=== PATIENT | female | born 1950 | race Caucasian/White ===

== ENCOUNTER 2021-05-01 10:15 | Outpatient (CLI) | payer MEDICARE ==
[2021-05-01 11:49] LABS: Hemoglobin 13.5 g/dL (12.0-15.5); Mean Corpuscular HGB CONC 32.5 g/dL (32.0-36.0); Mean Corpuscular Hemoglobin 31.2 pg (27.0-33.0); Mean Corpuscular Volume 96.1 fl (81.6-98.3); Mean Platelet Volume 9.9 fl (7.4-10.4); Platelet Count 337 10x3/uL (150-450); RBC Distribution Width 13.8 % (11.5-14.5); Red Blood Cell (RBC) Count 4.33 10x6/uL (3.90-5.03); White Blood Cell (WBC) Count 6.1 10x3/uL (3.5-10.5)
[2021-05-01 11:53] LABS: Prothrombin Time 11.3 sec (9.5-12.1)
[2021-05-01 11:55] LABS: Anion Gap 10 mmol/L (10-20); BUN (Urea Nitrogen) 11 mg/dL (9.8-20.1); Calc. Creatinine Clearance 0 mL/min (70-130); Calcium 9.2 mg/dL (7.8-10.44); Carbon Dioxide 30 mmol/L (23-31); Chloride 101 mmol/L (98-107); Glucose 85 mg/dL (80-115); Potassium 5.2 mmol/L (3.5-5.1); Sodium 136 mmol/L (136-145)
[2021-05-01 18:27] LABS: SARS-CoV-2 PCR by NAA Not Detected (NotDetected)
== END 2021-05-01 10:16 | disposition home or self-care (01) ==
LOC: LABBT 10:15
PROVIDERS: ATTEND Internal Medicine Cardiovascular Disease
DX: Z01.812 Encounter for preprocedural laboratory examination (principal); I48.0 Paroxysmal atrial fibrillation; Z20.822 Contact with and (suspected) exposure to COVID-19
CPT/HCPCS: 80048; 85027; 85610; U0003; U0005

== ENCOUNTER 2021-05-06 06:07 | Day surgery (SDC) | payer MEDICARE, OTHER ==
[2021-04-28 11:04] VITALS: BMI 22.0
[2021-05-06] MEDS ORDERED: Heparin 10,000 UNITS/ 10 ML VIAL ONE ×2 (06:39→09:58)
[2021-05-06] MEDS ORDERED: Heparin 25,000 units/D5W 500 ML ONE (06:39)
[2021-05-06] MEDS ORDERED: Fentanyl 100 MCG/2 ML VIAL ONE ×2 (06:56→10:34)
[2021-05-06] MEDS ORDERED: Midazolam HCl 2 mg/2 ml Vial ONE (07:24)
[2021-05-06] MEDS ORDERED: PROPOFOL 200 MG/20 ML VIAL ONE (07:27)
[2021-05-06] MEDS ORDERED: Lidocaine 1% PF 5 ML VIAL ONE (07:27)
[2021-05-06] MEDS ORDERED: Glycopyrrolate 0.2 MG/ML 5 ML SYRINGE ONE (07:27)
[2021-05-06] MEDS ORDERED: Rocuronium Bromide 10 MG/ML (10ML VIAL) ONE (07:27)
[2021-05-06] MEDS ORDERED: Calcium Chloride 1 GM/10 ML Abboject SYRINGE ONE (07:27)
[2021-05-06] MEDS ORDERED: PHENYLEPHRINE-NS 100 MCG/ML 10 ML SYRINGE ONE (07:27)
[2021-05-06] MEDS ORDERED: Protamine Sulfate 50 MG/5 ML VIAL ONE (09:22)
[2021-05-06] MEDS ORDERED: Isoproterenol 0.2 MG/1 ML AMP ONE (10:00)
[2021-05-06] MEDS ORDERED: Acetaminophen 325 MG TAB ONE (11:08)
== END 2021-05-06 14:30 | disposition home or self-care (01) ==
LOC: CCL 06:07
PROVIDERS: ATTEND Internal Medicine Cardiovascular Disease
PROC: B246ZZ4 Ultrasonography of Right and Left Heart, Transesophageal (ICD-10-PCS; principal; 2021-05-06)
PROC: 02583ZZ Destruction of Conduction Mechanism, Percutaneous Approach (ICD-10-PCS; 2021-05-06)
PROC: 02K83ZZ Map Conduction Mechanism, Percutaneous Approach (ICD-10-PCS; 2021-05-06)
DX: I48.0 Paroxysmal atrial fibrillation (principal); I47.1 Supraventricular tachycardia; I11.9 Hypertensive heart disease without heart failure; I34.1 Nonrheumatic mitral (valve) prolapse; I49.3 Ventricular premature depolarization; E78.5 Hyperlipidemia, unspecified; E03.9 Hypothyroidism, unspecified; Z87.891 Personal history of nicotine dependence; Z79.01 Long term (current) use of anticoagulants; Z79.83 Long term (current) use of bisphosphonates; Z79.899 Other long term (current) drug therapy
CPT/HCPCS: 85347; 93005; 93312; 93613; 93623; 93656; 93657; 93662; C1732; C1759; C1776; C1894; C2630; J1644; J2250; J2704; J2720; J3010

== ENCOUNTER 2023-01-15 23:46 | Observation (INO) | payer MEDICARE, OTHER ==
[2023-01-16] MEDS ORDERED: Morphine 4 MG/ML VIAL ONE (00:36)
[2023-01-16 00:51] LABS: Bacteria/HPF None Seen HPF (None Seen); Bilirubin Negative (Negative); Blood, Urine Negative (Negative); CAUTI Indications for Culture Dysuria,urgency,freq; Clarity Clear (Clear); Glucose, Urine (Dipstick) Normal (Negative); Ketone, Urine 10 mg/dL (Negative); Leukocyte Negative Leu/uL (Negative); Nitrite 1+ (Negative); Protein, Urine (Dipstick) Negative (Neg-Trace); RBC/HPF 0-3 HPF (0-3); Specific Gravity, Urine 1.005 (1.002-1.036); Squamous Epithelial None Seen HPF (0-3); Urobilinogen Normal mg/dL (Less than 2); WBC/HPF 0-3 HPF (0-3); pH, Urine 6.5 (5.0-9.0)
[2023-01-16 00:52] LABS: ALT (SGPT) 14 U/L (8-55); AST (SGOT) 20 U/L (5-34); Albumin 4.2 g/dL (3.4-4.8); Alkaline Phosphatase 177 U/L (40-110); Anion Gap 15 mmol/L (10-20); BUN (Urea Nitrogen) 15 mg/dL (9.8-20.1); Bilirubin, Total 0.6 mg/dL (0.2-1.2); Calc. Creatinine Clearance 0 mL/min (70-130); Calcium 9.6 mg/dL (7.8-10.44); Carbon Dioxide 21 mmol/L (23-31); Chloride 96 mmol/L (98-107); Estimated GFR 93; Globulin 2.7 g/dL (2.4-3.5); Glucose 97 mg/dL (80-115); Potassium 3.3 mmol/L (3.5-5.1); Protein, Total 6.9 g/dL (5.8-8.1); Sodium 129 mmol/L (136-145)
[2023-01-16 00:59] LABS: Urine Culture Reflex No No
[2023-01-16] MEDS ORDERED: cefTRIAXone (ROCEPHIN) 500 MG VIAL ONE (01:17)
[2023-01-16] MEDS ORDERED: cefTRIAXone (ROCEPHIN) 1 GM VIAL ONE (01:19)
[2023-01-16 01:54] LABS: #Basophils 0.1 thou/uL (0.0-0.2); #Eosinphils 0.2 thou/uL (0.0-0.7); #Monocytes 1.2 thou/uL (0.11-0.59); #Neutrophils 8.4 thou/uL (1.40-6.50); %Basophils 0.8 % (0.0-1.0); %Lymphocytes 10.5 % (21.0-51.0); %Monocytes 10.6 % (0.0-10.0); %Neutrophils 75.8 % (42.0-75.0); Hematocrit 34.5 % (36.0-47.0); Hemoglobin 11.1 g/dL (12.0-16.0); Mean Corpuscular HGB CONC 32.2 g/dL (32.0-36.0); Mean Corpuscular Hemoglobin 29.3 pg (27.0-31.0); Mean Platelet Volume 9.7 fL (7.4-10.4); Platelet Count 640 10x3/uL (130-400); RBC Distribution Width 19.1 % (11.5-14.5); Red Blood Cell (RBC) Count 3.79 mill/uL (4.20-5.40); White Blood Cell (WBC) Count 11.1 10x3/uL (4.8-10.8)
[2023-01-16] MEDS ORDERED: Metoprolol Tartrate 5 MG/5 ML VIAL ONE (04:55)
[2023-01-16] MEDS ORDERED: Vancomycin 1 GM/200 ML (FROZEN) BAG ONE (04:56)
[2023-01-16] MEDS ORDERED: Magnesium 2 GM/50 ML BAG (IN WATER) ONE (04:56)
[2023-01-16] MEDS ORDERED: Digoxin 0.5 MG/2 ML AMP ONE (05:06)
[2023-01-16 05:31] LABS: Troponin I Less than 0.010 ng/mL (< 0.028)
[2023-01-16 09:08] LABS: Troponin I 0.016 ng/mL (< 0.028)
[2023-01-16] MEDS ORDERED: Senokot S 8.6-50 MG TAB PO PRN (09:30)
[2023-01-16] MEDS ORDERED: Acetaminophen 325 MG TAB PO PRN (09:30)
[2023-01-16] MEDS ORDERED: Electrolyte Replacement Protocol 1 EACH FS SCH (09:30)
[2023-01-16] MEDS ORDERED: Sodium Chloride 0.9% 1,000 ML IV SCH (09:30)
[2023-01-16] MEDS ORDERED: Morphine 2 MG/ML VIAL SLOW IVP PRN (09:36)
[2023-01-16] MEDS ORDERED: Cyclobenzaprine 10 MG TAB PO PRN (09:36)
[2023-01-16 09:52] LABS: Magnesium 2.4 mg/dL (1.6-2.6)
[2023-01-16] MEDS ORDERED: RENALLY IVPB PRN (10:03)
[2023-01-16] MEDS ORDERED: Potassium Chloride 20 MEQ TAB PO SCH ×2 (10:15→16:45)
[2023-01-16] MEDS ORDERED: Electrolyte Replacement Protocol FS PRN (10:15)
[2023-01-16] MEDS ORDERED: ALPRAZolam 0.25 MG TAB PO PRN (12:33)
[2023-01-16] MEDS ORDERED: Iopamidol 370 76% 100 ML VIAL ONE (14:30)
[2023-01-16 15:27] VITALS: BMI 23.1
[2023-01-16] MEDS: Metoclopramide HCl 10 MG/2 ML VIAL IVP SCH ×2 (16:04→22:19)
[2023-01-16 16:33] LABS: Potassium 3.5 mmol/L (3.5-5.1)
[2023-01-16] MEDS: Vancomycin 1 GM in Premix 1 BAG IVPB SCH (16:41)
[2023-01-16] MEDS ORDERED: Vancomycin 1 GM in Sodium Chloride 0.9% 250 ML 300 ML IVPB SCH (21:00)
[2023-01-16] MEDS ORDERED: Atorvastatin Calcium 20 MG TAB PO SCH (21:00)
[2023-01-16] MEDS: hydrALAZINE 25 MG TAB PO SCH (22:18)
[2023-01-16] MEDS: Apixaban 5 MG TAB PO SCH (22:19)
[2023-01-16] MEDS: Flecainide 50 MG TAB PO SCH (22:19)
[2023-01-17] MEDS ORDERED: Hyoscyamine SL 0.125 MG TAB PO SCH (00:15)
[2023-01-17] MEDS ORDERED: Phenazopyridine HCl 100 MG TAB PO SCH (01:00)
[2023-01-17] MEDS ORDERED: cefTRIAXone\\ROCEPHIN 2 GM in Sodium Chloride 0.9% 100 ML IVPB SCH (02:00)
[2023-01-17] MEDS: Metoclopramide HCl 10 MG/2 ML VIAL IVP SCH ×2 (04:31→14:52)
[2023-01-17] MEDS: Vancomycin 1 GM in Premix 1 BAG IVPB SCH (04:31)
[2023-01-17 05:39] LABS: #Basophils 0.1 thou/uL (0.0-0.2); #Eosinphils 0.4 thou/uL (0.0-0.7); #Monocytes 0.6 thou/uL (0.11-0.59); #Neutrophils 5.8 thou/uL (1.40-6.50); %Basophils 1.3 % (0.0-1.0); %Eosinophils 4.6 % (0.0-10.0); %Lymphocytes 12.6 % (21.0-51.0); %Monocytes 8.1 % (0.0-10.0); Hematocrit 33.6 % (36.0-47.0); Hemoglobin 10.4 g/dL (12.0-16.0); Mean Corpuscular Hemoglobin 29.2 pg (27.0-31.0); Mean Corpuscular Volume 94.4 fl (78.0-98.0); Mean Platelet Volume 9.7 fL (7.4-10.4); Platelet Count 561 10x3/uL (130-400); RBC Distribution Width 19.2 % (11.5-14.5); Red Blood Cell (RBC) Count 3.56 mill/uL (4.20-5.40); White Blood Cell (WBC) Count 7.9 10x3/uL (4.8-10.8)
[2023-01-17] MEDS ORDERED: Levothyroxine Sodium 100 MCG TAB PO SCH (06:00)
[2023-01-17 06:43] LABS: Anion Gap 13 mmol/L (10-20); BUN (Urea Nitrogen) 6 mg/dL (9.8-20.1); Calc. Creatinine Clearance 100 mL/min (70-130); Calcium 8.1 mg/dL (7.8-10.44); Carbon Dioxide 19 mmol/L (23-31); Chloride 108 mmol/L (98-107); Estimated GFR 98; Glucose 105 mg/dL (80-115); Magnesium 2.3 mg/dL (1.6-2.6); Potassium 4.1 mmol/L (3.5-5.1); Sodium 136 mmol/L (136-145)
[2023-01-17] MEDS: Flecainide 50 MG TAB PO SCH (10:06)
[2023-01-17] MEDS: Apixaban 5 MG TAB PO SCH (10:06)
[2023-01-17] MEDS: hydrALAZINE 25 MG TAB PO SCH (10:06)
[2023-01-17] MEDS ORDERED: Tamsulosin HCl 0.4 MG CAP PO SCH (15:00)
[2023-01-17] MEDS ORDERED: Vancomycin 1 GM in Premix 1 BAG IVPB SCH (15:00)
[2023-01-17] MEDS ORDERED: traMADol HCl 50 MG TAB PO PRN (16:54)
[2023-01-17] MEDS ORDERED: Alendronate Sodium 70 mg Tablet PO SCH (17:00)
[2023-01-17 17:11] VITALS: BP 158/64; TEMP 97.9
[2023-01-18] MEDS ORDERED: Hydrochlorothiazide 25 MG TAB PO SCH (09:00)
[2023-01-18] MEDS ORDERED: Tamsulosin HCl 0.4 MG CAP PO SCH (09:00)
[2023-01-18] MEDS ORDERED: Losartan 25 MG TAB PO SCH (09:00)
== END 2023-01-17 19:18 | disposition home health service (06) ==
LOC: ERS 23:46 → ERHOLD 01-16 08:13 → 2SW 01-16 15:06
PROVIDERS: ADMIT Internal Medicine; ATTEND Nurse Practitioner Family
DX: R10.30 Lower abdominal pain, unspecified (principal); F41.9 Anxiety disorder, unspecified; I48.91 Unspecified atrial fibrillation; R33.9 Retention of urine, unspecified; A41.9 Sepsis, unspecified organism; I10 Essential (primary) hypertension; I82.409 Acute embolism and thrombosis of unspecified deep veins of unspecified lower extremity; E78.5 Hyperlipidemia, unspecified; E03.9 Hypothyroidism, unspecified; I25.10 Atherosclerotic heart disease of native coronary artery without angina pectoris; M81.8 Other osteoporosis without current pathological fracture; Z98.890 Other specified postprocedural states; Z90.710 Acquired absence of both cervix and uterus; Z79.82 Long term (current) use of aspirin; Z79.01 Long term (current) use of anticoagulants; Z79.890 Hormone replacement therapy; Z79.899 Other long term (current) drug therapy
CPT/HCPCS: 71045; 74177; 80048; 80053; 81001; 83605; 83690; 83735 ×2; 83880; 84132; 84484 ×2; 85025 ×2; 87040; 87086; 93005; J3370 ×2; 36415; 36416; 51702; 96365; 96366; 96367; 96375; 96376; G0378; J0696; J1160; J2270; J2272; J3475; J3490; J7050; Q9967

== ENCOUNTER 2024-08-10 06:19 | Day surgery (SDC) | payer MEDICARE, OTHER ==
[2024-08-08 12:34] VITALS: BMI 21.2
[2024-08-10] MEDS ORDERED: EPINEPHrine 1 MG/ML VIAL ONE (06:48)
[2024-08-10] MEDS ORDERED: Bupivacaine PF 0.5% 30 ML VIAL ONE (06:48)
[2024-08-10] MEDS ORDERED: Lidocaine 1% MPF 2 ML VIAL ONE (06:50)
[2024-08-10] MEDS ORDERED: fentaNYL PF 100 MCG/2 ML SYRINGE ONE (06:50)
[2024-08-10] MEDS ORDERED: PROPOFOL 20 ML ONE (06:50)
[2024-08-10] MEDS ORDERED: Lidocaine 1% PF 5 ML VIAL ONE (06:59)
[2024-08-10] MEDS ORDERED: CEFAZOLIN 2 GM VIAL ONE (07:08)
[2024-08-10] MEDS ORDERED: Ondansetron PF 4 MG/2 ML Vial ONE (08:18)
[2024-08-10] MEDS ORDERED: ePHEDrine/0.9% NaCl/PF SYRINGE 50 mg/10 ml ONE (08:40)
[2024-08-10] MEDS ORDERED: Ketorolac Tromethamine 30 MG (1 mL) VIAL ONE (09:21)
[2024-08-10] MEDS ORDERED: HYDROcodone/Acetaminophen 5/325 mg Tablet ONE (10:02)
== END 2024-08-10 12:02 | disposition critical access hospital (66) ==
LOC: SDC 06:19
PROVIDERS: ATTEND Orthopaedic Surgery
PROC: 0QPH04Z Removal of Internal Fixation Device from Left Tibia, Open Approach (ICD-10-PCS; principal; 2024-08-10)
DX: T84.84XA Pain due to internal orthopedic prosthetic devices, implants and grafts, initial encounter (principal); S82.142A Displaced bicondylar fracture of left tibia, initial encounter for closed fracture; Y83.1 Surgical operation with implant of artificial internal device as the cause of abnormal reaction of the patient, or of later complication, without mention of misadventure at the time of the procedure
CPT/HCPCS: 20680; 73590; J0171; J0665; J1885; J2405; J2704